=== PATIENT | male | born 1975 | race Caucasian/White ===

== ENCOUNTER 2019-09-23 12:28 | Emergency (ER) | payer MEDICAID, SELFPAY ==
[~2019-09-23] VITALS: Ht 170.2 cm; Wt 74.8 kg
[2019-09-23 12:28] VITALS: BP_SYST 134
--- NOTE | 2019-09-23 12:28 | NUR ---
Patient triaged and placed in waiting room. VSS and patient appears in no acute distress at this time. Awaiting available bed, and MD notified of need for MSE.
--- NOTE | 2019-09-23 13:30 | NUR ---
Patient to ER bed 7 to gown for evaluation. Side rails up.
--- NOTE | 2019-09-23 13:31 | NUR ---
ROBBI Rodriguez at bedside examining patient.
--- NOTE | 2019-09-23 13:32 | NUR ---
pt arrives from home w/ c/o increasing SOB. pt was tested for Covid. Pt was placed on 2l NC, ABG's were drawn. hose inspector placed.
--- NOTE | 2019-09-23 13:50 | NUR ---
# 22 gauge angiocath placed to LFA. Use of asceptic technique. Opsite placed over site. Blood return noted. Blood for lab drawn from site. Flushed with 10 cc of normal saline. No evidence of infiltration noted. Patient tolerated well.
[2019-09-23] MEDS ORDERED: PIPERACILLIN/TAZO 3.375 GM in NS 50 ML IV ONE (14:00)
[2019-09-23] MEDS ORDERED: NACL 0.9% 1,000 ML IV ONE (14:00)
[2019-09-23 14:16] LABS: BASOPHILS % (AUTO) 0.3 % (0.0-2.0); HEMATOCRIT 50.3 % (36-54); HEMOGLOBIN 17.3 g/dL (14.0-18.0); LYMPHOCYTES # (AUTO) 1.1 K/uL (1.0-5.5); LYMPHOCYTES % (AUTO) 14.4 % (20.5-51.5); MEAN CORPUSCULAR HEMOGLOBIN 30 pg (27-31); MEAN CORPUSCULAR HGB CONC 34 % (32-36); MEAN CORPUSCULAR VOLUME 88 fL (79.0-98.0); MONOCYTES # (AUTO) 0.6 K/uL (0.0-1.0); NEUTROPHILS # (AUTO) 5.8 K/uL (1.8-7.7); NEUTROPHILS % (AUTO) 77.3 % (40.0-70.0); PLATELET COUNT (AUTO) 195 K/uL (130-430); RED CELL DISTRIBUTION WIDTH 13.4 % (9.0-15.0); WHITE BLOOD COUNT (AUTO) 7.5 K/uL (4.8-10.8)
[2019-09-23 14:20] LABS: CALCIUM 8.9 mg/dL (8.4-11.0); CREATININE 1.16 mg/dL (0.55-1.30); POTASSIUM 3.9 mmol/L (3.5-5.1)
[2019-09-23 14:24] LABS: PROTHROMBIN TIME 10.5 SECS (9.5-12.5)
[2019-09-23 14:26] LABS: ALBUMIN 3.4 g/dL (3.4-4.8); TOTAL BILIRUBIN 0.6 mg/dL (0.0-1.0)
--- NOTE | 2019-09-23 15:10 | NUR ---
NS 1 liter and Rocephin currently infusing per MD order
[2019-09-23] MEDS ORDERED: PIPERACILLIN/TAZOBACTAM 3.375 GM/VIAL (ZOSYN) IV ONE (15:17)
[2019-09-23 15:26] LABS: C-REACTIVE PROTEIN QUANT 22.5 mg/dL (0-0.5)
[2019-09-23 15:57] LABS: BILIRUBIN,URINE 1+ (NEGATIVE); BLOOD, URINE 1+ (NEGATIVE); GLUCOSE,URINE NEGATIVE (NEGATIVE); KETONES,URINE TRACE (NEGATIVE); LEUKOCYTE ESTERASE ,URINE NEGATIVE (NEGATIVE); NITRITE, URINE NEGATIVE (NEGATIVE); PROTEIN URINE 2+ (NEGATIVE)
--- NOTE | 2019-09-23 16:03 | NUR ---
called for a tele bed. Unable to get a bed assignment
[2019-09-23 16:13] LABS: CLARITY/URINE SLIGHTLY HAZY (CLEAR); COLOR,URINE AMBER (YELLOW)
[2019-09-23 16:27] LABS: FIBRINOGEN 785 mg/dL (200-400)
[2019-09-23 16:35] LABS: BACTERIA,URINE FEW /HPF (None Seen); MUCUS,URINE None Seen /LPF (None Seen); RBC,URINE 0-3 /HPF (0-3); WBC,URINE 0-3 /HPF (0-3)
--- NOTE | 2019-09-23 17:00 | NUR ---
Levaquin currently infusing per MD order
[2019-09-23] MEDS ORDERED: LEVOFLOXACIN 500 MG/D5W 100 ML IV SCH (18:00)
--- NOTE | 2019-09-23 18:00 | NUR ---
pt does not take any home meds
--- NOTE | 2019-09-23 19:14 | NUR ---
report given to Elizabeth VIZCAINO. Currently waiting for a tele bed. O2 sat is 94% on 4l.
--- NOTE | 2019-09-23 19:31 | NUR ---
FAMILY DROPPED OFF PTS BIBLE AND PHONE [facility].
--- NOTE | 2019-09-23 20:30 | NUR ---
PT ALERT, ORIENTED, AWAKE, REQUESTING WATER. PT APPEARS TO HAVE A COUGH, PRODUCING SPUTUM. PT VITAL SIGNS STABLE.
[2019-09-23] MEDS ORDERED: ENOXAPARIN SODIUM 40 MG/0.4 ML SYRINGE SUBCUT SCH (21:00)
--- NOTE | 2019-09-23 21:30 | NUR ---
DR. HERNANDEZ CALLED TO INFORM PT HE IS WISHING TO GO HOME AND LEAVE AGAINST MEDICAL ADVICE.
--- NOTE | 2019-09-23 21:47 | NUR ---
Patient does not wish to proceed with medical care recommended by DR. HERNANDEZ. DR. MCBRIDE AWARE, PRESENT, AND SIGNED AMA FORM. Patient given information related to possible complications, up to and including , which could occur as a result of leaving hospital at this time. Patient verbalizes understanding of risks involved leaving against medical advice. Patient has signed AMA form.
[2019-09-23 22:10] VITALS: BP_SYST 123
--- NOTE | 2019-09-23 22:18 | NUR ---
PT PICKED UP BY FAMILY MEMBER. PT AMBULATED WITH STEADY GAIT. PT WEARING A MASK WHEN LEAVING FACILITY. VITAL SIGNS STABLE.
== END 2019-09-23 22:10 | disposition left against medical advice (07) ==
LOC: SED 12:28 → STU 15:54 → UNDOADMIN 15:54 → UNDODISIN 22:13
DX: U07.1 COVID-19 (principal); R09.02 Hypoxemia; J18.9 Pneumonia, unspecified organism
CPT/HCPCS: 36415; 36600; 71045; 80053; 81000; 82728; 82803; 83605; 83615; 85025; 85379; 85384; 85610; 85730; 86140; 86710; 87040; 87086; 96365; 96367; 99285; J1650; J1956; J2543; G0378